=== PATIENT | male | born 1970 | race Caucasian/White ===

== ENCOUNTER 2017-03-02 16:55 | Emergency (ER) | payer OTHER ==
[2017-03-02 17:07] VITALS: TEMP 98.2
--- NOTE | 2017-03-02 17:29 | EDPHY ---
H & P Time Seen by Provider: 03/02/17 17:23 HPI/ROS: CHIEF COMPLAINT: Back pain HISTORY OF PRESENT ILLNESS: This patient is a healthy 46 y/o male complaining of low back pain. He has been lifting many heavy boxes and furniture pieces for the last two days. Today, he pushed a box of books to the side and then bent over and felt sudden low back pain. This occurred around 1:30pm this afternoon. The pain is primarily right- sided and radiates down his right leg to his knee. He took Excedrin without relief, and decided to present to the emergency department after several hours of discomfort. The patient states his discomfort causes nausea and labored breathing. He denies history of back pain or prior injury. No extremity weakness, paresthesias or incontinence of bladder or bowels. He has no further complaints. REVIEW OF SYSTEMS: A 10 point review of systems was performed and is negative with the exception of the elements mentioned in the history of present illness. Past Medical/Surgical History: 1. Anxiety 2. IBS Social History: Works at [employer]. Lives in [place]. Nonsmoker. Smoking Status: Never smoked Physical Exam: General Appearance: Alert, pleasant Eyes: Pupils equal and round, no conjunctival pallor ENT, Mouth: Mucous membranes moist Neck: Normal inspection Respiratory: Lungs are clear to auscultation Cardiovascular: Regular rate and rhythm Gastrointestinal: Abdomen is soft and non-tender Back: Point tenderness to right lumbar paraspinous musculature Neurological: Alert, oriented x3, motor/sensory intact Skin: Warm and dry, Extremities: Normal inspection Psychiatric: Mood and affect normal Constitutional: Initial Vital Signs Temperature (C) 36.8 C 03/02/17 17:05 Heart Rate 100 03/02/17 17:05 Respiratory Rate 18 03/02/17 17:05 Blood Pressure 164/103 H 03/02/17 17:05 O2 Sat (%) 95 03/02/17 17:05 O2 Delivery Mode Room Air Allergies/Adverse Reactions: No Known Allergies Allergy (Unverified 03/02/17 17:04) Home Medications: Medication Instructions Recorded Zoloft 50mg (*) 03/02/17 Medical Decision Making Procedures: Procedure: Trigger point injection. Indication: point tenderness to right lumbar paraspinous musculature The procedure risks, hazards and alternatives were discussed with the patient and a verbal consent was obtained. The area over the myofascial spasm was prepped with alcohol utilizing sterile technique. After isolating it, a 27gauge needle was placed in the center of the myofascial spasm and 4mL lidocaine was injected into the trigger point. The patient tolerated the procedure well without any apparent difficulties or complications. The procedure was performed by myself, Dr. Cagle. ED Course/Re-evaluation: 46 y/o male presents with right-sided low back pain. Plan to administer 600mg PO ibuprofen and lidocaine patch for pain relief. Plan for trigger point injection with lidocaine. 17:40 Performed trigger point injection with lidocaine to the right paraspinous lumbar musculature. See note above. The patient tolerated the procedure well. Plan to d/c home in good condition with [place] take-home pack and lidocaine patches for pain relief. Follow up and return precautions discussed. The patient is comfortable with this plan. Differential Diagnosis: Differential diagnosis for back pain includes muscular pain, herniated disc, epidural abscess, discitis, spine fracture, intra-abdominal causes and urinary tract infection. - Data Points Medications Given: Discontinued Medications Hydrocodone Bitart/Acetaminophen ([place] 5/325mg Prepack#6) 1 btl TAKEHOME EDNOW ONE Stop: 03/02/17 17:42 Last Admin: 03/02/17 17:52 Dose: 1 btl Ibuprofen (Motrin) 600 mg PO EDNOW ONE Stop: 03/02/17 17:42 Last Admin: 03/02/17 17:53 Dose: 600 mg Lidocaine (Lidoderm 5%) 1 ea TD EDNOW ONE Stop: 03/02/17 17:42 Last Admin: 03/02/17 17:53 Dose: 1 ea Miscellaneous Information (Patch Removal) 1 ea TD [id number] NOLVIA Stop: 08/29/17 20:59 Last Admin: 03/02/17 18:00 Dose: Not Given Departure - Departure Disposition: Home, Routine, Self-Care Clinical Impression: Low back strain Qualifiers: Encounter type: initial encounter Qualified Code(s): S39.012A - Strain of muscle, fascia and tendon of lower back, initial encounter Condition: Good Instructions: Hydrocodone/Acetaminophen (By mouth), Low Back Strain (ED) Additional Instructions: 1. Follow up with your primary care provider for further evaluation. 2. Take 600mg Ibuprofen every 6-8 hours for pain relief. Take [place] as prescribed as needed for severe pain. 3. You may also wear a Lidocaine patch as directed. 4. Return to the emergency department for severe pain, fever, numbness, difficulty walking, change in location or nature of pain or other concerns. Referrals: JIMI ORDAZ [Other] - As per Instructions Report Scribed for: Luci Cagle Report Scribed by: Luh Camacho Date of Report: 03/02/17 Time of Report: 17:29 Physician Review and Approval Statement: 03/02/17 17:29 Portions of this note were transcribed by a paramedical aide. I personally performed a history, physical exam, medical decision making, and confirmed accuracy of information the transcribed note.
[2017-03-02] MEDS ORDERED: LIDOCAINE 5% 1 EA PATCH TD ONE (17:41)
[2017-03-02] MEDS ORDERED: IBUPROFEN 600 MG TAB PO ONE (17:41)
[2017-03-02] MEDS ORDERED: HYDROCOD/APAP 5/325 PREPACK#6 BTL TAKEHOME ONE (17:41)
[2017-03-02 17:52] VITALS: BP 121/70; PULSE 90; RESP 16; O2SAT 97
[2017-03-02] MEDS ORDERED: PATCH REMOVAL 1 EA PATCH TD SCH (21:00)
== END 2017-03-02 18:00 | disposition home or self-care (01) ==
PROC: 3E023GC Introduction of Other Therapeutic Substance into Muscle, Percutaneous Approach (ICD-10-PCS; principal; 2017-03-02)
DX: S39.012A Strain of muscle, fascia and tendon of lower back, initial encounter (principal); X50.9XXA Other and unspecified overexertion or strenuous movements or postures, initial encounter; Y99.0 Civilian activity done for income or pay; Y93.89 Activity, other specified